=== PATIENT | female | born 1995 | race African-American/Black ===

== ENCOUNTER 2018-03-25 18:10 | Emergency (ER) | payer SELFPAY ==
[~2018-03-25] VITALS: Ht 152.4 cm; Wt 59.0 kg
[~2018-03-25 18:10] MED LIST: PREN-96 PO
[2018-03-25 18:49] VITALS: BP 113/55
== END 2018-03-26 00:13 | disposition home or self-care (01) ==
LOC: ER 18:10
DX: O46.91 Antepartum hemorrhage, unspecified, first trimester (principal); Z3A.00 Weeks of gestation of pregnancy not specified; Z53.21 Procedure and treatment not carried out due to patient leaving prior to being seen by health care provider

== ENCOUNTER 2019-04-07 21:35 | Observation (INO) | payer SELFPAY ==
[~2019-04-07] VITALS: Ht 152.4 cm; Wt 76.2 kg
[2019-04-07 22:14] LABS: Urine Bacteria FEW /hpf (None Seen); Urine Blood TRACE /uL (Negative); Urine Mucus FEW (None Seen); Urine Specific Gravity 1.027 (1.001-1.035); Urine WBC 12 /hpf (0 - 5)
[2019-04-07 22:29] LABS: Alcohol, Urine < 3.0 mg/dL (0-5); Amphetamine Screen, Urine NEGATIVE (NEGATIVE); Barbiturate Scree,Urine NEGATIVE (NEGATIVE); Benzodiazephine Screen, Urine NEGATIVE (NEGATIVE); Cannabinoid Screen, Urine NEGATIVE (NEGATIVE); Cocaine Screen, Urine NEGATIVE (NEGATIVE); Opiate Scree,Urine NEGATIVE (NEGATIVE); Phencyclidine Screen, Urine NEGATIVE (NEGATIVE)
== END 2019-04-07 22:37 | disposition home or self-care (01) | DRG 833 ==
LOC: LDRP 21:35
PROVIDERS: ADMIT Obstetrics & Gynecology; ATTEND Obstetrics & Gynecology
DX: O62.9 Abnormality of forces of labor, unspecified (principal); O26.893 Other specified pregnancy related conditions, third trimester; N89.8 Other specified noninflammatory disorders of vagina; Z3A.37 37 weeks gestation of pregnancy
CPT/HCPCS: 80307; 81001; G0378; 59025; 81002

== ENCOUNTER 2023-05-08 20:01 | Emergency (ER) | payer MEDICAID ==
[~2023-05-08] VITALS: Ht 152.4 cm; Wt 83.0 kg
[2023-05-08 21:08] LABS: Urine Bacteria FEW /hpf (None Seen); Urine Blood 2+ /uL (Negative); Urine Mucus FEW (None Seen); Urine Specific Gravity 1.025 (1.001-1.035); Urine WBC 4 /hpf (0 - 5)
[2023-05-08 21:09] LABS: Mean Corpuscular Hemoglobin 30.2 pg (28.0-32.0); Mean Corpuscular Hgb Conc. 33.9 g/dL (32.0-36.0); Mean Corpuscular Volume 89.2 fL (80.0-100.0)
[2023-05-08 21:14] LABS: Basophils # (auto) 0 10 ^3/uL (0-0.2); Basophils % (auto) 0.4 % (0.0-2.0); Eosinophils # (auto) 0.2 10 ^3/uL (0-0.8); Hematocrit 37.7 % (36.0-46.0); Hemoglobin 12.8 g/dL (12.2-16.2); Lymphocytes # (auto) 2.6 10 ^3/uL (0.4-5.4); Lymphocytes % (auto) 34.5 % (10.0-50.0); Monocytes # (auto) 0.6 10 ^3/uL (0-1.3); Neutrophils # (auto) 4.2 10 ^3/uL (1.6-8.6); Neutrophils % (auto) 55.1 % (37.0-80.0); Nucleated Red Blood Cells % 0.3 %; Red Blood Cells 4.23 10^6/uL (4.0-5.20); Red Cell Distribution Width 14.6 % (11.8-14.3); White Blood Cell 7.6 10^3/uL (4.4-10.8)
[2023-05-08 21:27] LABS: Albumin 3.9 g/dL (3.4-5.0); Calcium 9.2 mg/dL (8.5-10.1); Magnesium 2.4 mg/dL (1.6-2.6); Potassium 4.1 mmol/L (3.5-5.1)
[2023-05-08 21:30] LABS: BUN/Creatinine Ratio 14.9 (10.0-20.0); Bilirubin, Total 0.3 mg/dL (0.2-1.0); Total Protein 7.1 g/dL (6.4-8.2)
[2023-05-09 00:19] VITALS: BP 85/55; PULSE 63; RESP 15; TEMP 97.6; O2SAT 99
[2023-05-09] MEDS ORDERED: CYCL-611 PO (00:19)
[2023-05-09] MEDS ORDERED: FAMO20TA10 PO (00:19)
== END 2023-05-09 01:05 | disposition home or self-care (01) ==
LOC: ER 20:01
DX: R07.89 Other chest pain (principal); K21.9 Gastro-esophageal reflux disease without esophagitis; M62.830 Muscle spasm of back; R00.2 Palpitations; Z32.02 Encounter for pregnancy test, result negative; Z79.899 Other long term (current) drug therapy
CPT/HCPCS: 36415; 71045; 80053; 81001; 81025; 83735; 83880; 84443; 84484; 85025; 93005

== ENCOUNTER 2024-01-09 18:03 | Observation (INO) | payer MEDICAID ==
[~2024-01-09] VITALS: Ht 154.9 cm; Wt 80.7 kg
[~2024-01-09 18:03] MED LIST changes: +CYCL-611 PO; +FAMO20TA10 PO
[2024-01-09 19:25] LABS: Fern Testing Negative
[2024-01-09 20:08] LABS: Urine Amorphous Crystal FEW /hpf (None Seen); Urine Bacteria FEW /hpf (None Seen); Urine Blood Negative /uL (Negative); Urine Clarity HAZY (Clear); Urine Color Yellow (Yellow); Urine Mucus FEW (None Seen); Urine Protein, UAD 1+ (Negative); Urine Specific Gravity 1.022 (1.001-1.035); Urine WBC 4 /hpf (0 - 5)
[2024-01-09] MEDS ORDERED: NITR-52 PO (20:09)
== END 2024-01-09 20:21 | disposition home or self-care (01) ==
LOC: LDRP 18:03
PROVIDERS: ADMIT Obstetrics & Gynecology; ATTEND Obstetrics & Gynecology
DX: O23.43 Unspecified infection of urinary tract in pregnancy, third trimester (principal); O41.1030 Infection of amniotic sac and membranes, unspecified, third trimester, not applicable or unspecified; Z91.040 Latex allergy status; Z3A.29 29 weeks gestation of pregnancy
CPT/HCPCS: 59025; 76815; 81001; 81002; 87086; 94760; G0378; Q0114

== ENCOUNTER 2024-03-12 15:42 | Observation (INO) | payer MEDICAID ==
[~2024-03-12 15:42] MED LIST changes: -CYCL-611 PO; -FAMO20TA10 PO; +NITR-52 PO
[2024-03-12 17:30] LABS: Vaginal Bacteria Many; Vaginal Clue Cells Moderate; Vaginal Epithelial Cells Moderate; Vaginal Trichomonas Not Present
[2024-03-12 17:31] LABS: Fern Testing Negative
[2024-03-12] MEDS ORDERED: FERRCAP9 PO (17:58)
[2024-03-12] MEDS ORDERED: CEPH250C PO (17:58)
[2024-03-12] MEDS ORDERED: METR-344 PO (17:58)
== END 2024-03-12 18:00 | disposition home or self-care (01) ==
LOC: LDRP 15:42 → UNDOADMOB 15:42 → LDRP 16:17 → UNDODISOB 18:00
PROVIDERS: ADMIT Obstetrics & Gynecology; ATTEND Obstetrics & Gynecology
DX: O23.43 Unspecified infection of urinary tract in pregnancy, third trimester (principal); O99.613 Diseases of the digestive system complicating pregnancy, third trimester; K21.9 Gastro-esophageal reflux disease without esophagitis; O99.013 Anemia complicating pregnancy, third trimester; D64.9 Anemia, unspecified; O48.0 Post-term pregnancy; O42.92 Full-term premature rupture of membranes, unspecified as to length of time between rupture and onset of labor; Z3A.37 37 weeks gestation of pregnancy; Z91.040 Latex allergy status
CPT/HCPCS: 59025; 81002; 87210; 94760; G0378; Q0114

== ENCOUNTER 2024-03-22 15:56 | Observation (INO) | payer MEDICAID ==
[~2024-03-22 15:56] MED LIST changes: +CEPH250C PO; +FERRCAP9 PO; +METR-344 PO; -NITR-52 PO
[2024-03-22 16:53] LABS: Fern Testing Negative
== END 2024-03-22 17:24 | disposition home or self-care (01) ==
LOC: UNDOADMOB 15:56 → LDRP 15:56 → UNDODISOB 17:24
PROVIDERS: ADMIT Obstetrics & Gynecology; ATTEND Obstetrics & Gynecology
DX: O47.1 False labor at or after 37 completed weeks of gestation (principal); Z3A.39 39 weeks gestation of pregnancy; Z91.040 Latex allergy status
CPT/HCPCS: 59025; 81002; 84112; 94760; G0378; Q0114

== ENCOUNTER 2024-03-25 09:10 | Inpatient (IN) | payer MEDICAID ==
[~2024-03-25] VITALS: Ht 154.9 cm; Wt 74.8 kg
[2024-03-25] MEDS ORDERED: BUTORPHANOL TARTRATE 2 MG/1 ML VIAL IV PRN ×2 (10:00)
[2024-03-25] MEDS ORDERED: PHISODERM TOP SOLN 240ML BTL TOP PRN (10:00)
[2024-03-25] MEDS ORDERED: LACT. RINGERS/OXYTOCIN 20UNITS 1,000 ML IV SCH (10:00)
[2024-03-25] MEDS ORDERED: DERMOPLAST 60ML BOTTLE TOP PRN (10:00)
[2024-03-25] MEDS ORDERED: WITCH HAZEL-GLYCERIN PAD TOP PRN (10:00)
[2024-03-25] MEDS ORDERED: LIDOCAINE 2%HCL (LOCAL ANESTH.) INJ 20ML MDV IJ PRN (10:00)
[2024-03-25 10:15] LABS: Fern Testing Positive
[2024-03-25 10:27] LABS: Basophils # (auto) 0 10 ^3/uL (0-0.2); Basophils % (auto) 0.3 % (0.0-2.0); Eosinophils # (auto) 0 10 ^3/uL (0-0.8); Eosinophils % (auto) 0.1 % (0.0-7.0); Hematocrit 33.4 % (36.0-46.0); Hemoglobin 10.8 g/dL (12.2-16.2); Lymphocytes # (auto) 1.8 10 ^3/uL (0.4-5.4); Lymphocytes % (auto) 13.7 % (10.0-50.0); Mean Corpuscular Hgb Conc. 32.4 g/dL (32.0-36.0); Mean Corpuscular Volume 83.1 fL (80.0-100.0); Monocytes % (auto) 7.3 % (0.0-12.0); Neutrophils # (auto) 10.5 10 ^3/uL (1.6-8.6); Neutrophils % (auto) 78.6 % (37.0-80.0); Red Blood Cells 4.02 10^6/uL (4.0-5.20); Red Cell Distribution Width 15.5 % (11.8-14.3); White Blood Cell 13.4 10^3/uL (4.4-10.8)
[2024-03-25 10:43] LABS: Alanine Aminotransferase 79 U/L (7-40); Alkaline Phosphatase 100 U/L (46-116); Anion Gap 7 (5-15); Aspartate Aminotransferase 48 U/L (13-40); BUN/Creatinine Ratio 14.8 (10.0-20.0); Blood Urea Nitrogen 8 mg/dL (9-23); Calcium 9.9 mg/dL (8.5-10.1); Carbon Dioxide 24 mmol/L (20-30); Chloride 104 mmol/L (98-107); Glucose 87 mg/dL (74-106); Potassium 3.8 mmol/L (3.5-5.1); Sodium 135 mmol/L (136-145)
[2024-03-25 10:44] LABS: Bilirubin, Total 0.5 mg/dL (0.2-1.0); Total Protein 6.6 g/dL (5.7-8.2)
[2024-03-25 10:45] LABS: INR 0.97 (0.9-1.15); Partial Thromboplastin Time 26.3 SEC (24.5-34.5); Prothrombin Time 10.3 sec (9.3-11.8)
[2024-03-25] MEDS: miSOPROStol 50 MCG per PRE-CUT 1/2 TAB PO PRN (11:11)
[2024-03-25] MEDS: LACTATED RINGER'S 1,000 ML IV SCH (11:16)
[2024-03-25 12:13] LABS: Amphetamine Screen, Urine Neg (NEGATIVE); Barbiturate Scree,Urine Neg (NEGATIVE); Benzodiazephine Screen, Urine Neg (NEGATIVE); Cocaine Screen, Urine Neg (NEGATIVE); Creatinine, Urine 179.66 mg/dL (30.0-125.0); Opiate Scree,Urine Neg (NEGATIVE); Phencyclidine Screen, Urine Neg (NEGATIVE); Urine Protein/Creatinine Ratio 0.17
[2024-03-25 12:14] LABS: Cannabinoid Screen, Urine Neg (NEGATIVE)
[2024-03-25 12:27] LABS: Urine Bacteria FEW /hpf (None Seen); Urine Blood Negative /uL (Negative); Urine Clarity Clear (Clear); Urine Color Yellow (Yellow); Urine Mucus FEW (None Seen); Urine Protein, UAD TRACE (Negative); Urine Specific Gravity 1.023 (1.001-1.035); Urine Urobilinogen Normal (Negative); Urine WBC 4 /hpf (0 - 5)
[2024-03-25] MEDS: LACT. RINGERS/OXYTOCIN 20UNITS 500 ML IV ONE ×2 (15:00)
[2024-03-25] MEDS ORDERED: ONDANSETRON ODT 4 MG TAB PO PRN (16:30)
[2024-03-25] MEDS: IBUPROFEN 600 MG TAB PO PRN (17:00)
[2024-03-25 19:30] VITALS: BP 102/59; PULSE 85; RESP 16; TEMP 98.2; O2SAT 97
[2024-03-25] MEDS: ACETAMINOPHEN 325 MG TAB PO PRN (19:47)
[2024-03-25 23:30] VITALS: BP 98/57; PULSE 82; RESP 16; TEMP 98; O2SAT 97
[2024-03-26 03:00] VITALS: BP 99/62; PULSE 82; RESP 14; TEMP 97.9; O2SAT 97
[2024-03-26] MEDS ORDERED: IBU600T PO (05:57)
[2024-03-26 07:07] LABS: RPR Non Reactive (Non Reactive)
[2024-03-26 07:22] LABS: Basophils # (auto) 0 10 ^3/uL (0-0.2); Basophils % (auto) 0.1 % (0.0-2.0); Eosinophils # (auto) 0 10 ^3/uL (0-0.8); Hemoglobin 10.6 g/dL (12.2-16.2); Monocytes # (auto) 1.3 10 ^3/uL (0-1.3); Red Blood Cells 3.94 10^6/uL (4.0-5.20); White Blood Cell 15.1 10^3/uL (4.4-10.8)
[2024-03-26 07:23] LABS: Eosinophils % (auto) 0.2 % (0.0-7.0); Hematocrit 32.9 % (36.0-46.0); Lymphocytes % (auto) 13.2 % (10.0-50.0); Mean Corpuscular Hemoglobin 26.8 pg (28.0-32.0); Mean Corpuscular Hgb Conc. 32.2 g/dL (32.0-36.0); Mean Corpuscular Volume 83.4 fL (80.0-100.0); Monocytes % (auto) 8.4 % (0.0-12.0); Neutrophils # (auto) 11.8 10 ^3/uL (1.6-8.6); Neutrophils % (auto) 78.1 % (37.0-80.0); Nucleated Red Blood Cells % 0.1 %; Red Cell Distribution Width 16.1 % (11.8-14.3)
[2024-03-26 07:30] VITALS: BP 111/64; PULSE 87; RESP 16; TEMP 98.7; O2SAT 97
[2024-03-26 11:30] VITALS: BP 95/50; PULSE 86; RESP 16; TEMP 98.1; O2SAT 97
[2024-03-26 14:30] VITALS: BP 100/68; PULSE 78; RESP 18; TEMP 97.9; O2SAT 98
[2024-03-26 15:58] VITALS: BP 98/60; PULSE 82; RESP 16; TEMP 98.5; O2SAT 99
[2024-03-27 18:06] LABS: Treponema pallidum Ab (FTA-Ab) Non Reactive (Non Reactive)
== END 2024-03-26 15:45 | disposition home or self-care (01) | DRG 560 ==
LOC: LDRP 09:10 → OBSVTOIN 09:35 → LDRP 16:46
PROVIDERS: ADMIT Obstetrics & Gynecology; ATTEND Obstetrics & Gynecology
PROC: 10E0XZZ Delivery of Products of Conception, External Approach (ICD-10-PCS; principal; 2024-03-25)
PROC: 3E0DXGC Introduction of Other Therapeutic Substance into Mouth and Pharynx, External Approach (ICD-10-PCS; 2024-03-25)
DX: O42.92 Full-term premature rupture of membranes, unspecified as to length of time between rupture and onset of labor (principal); Z37.0 Single live birth; O90.81 Anemia of the puerperium; Z3A.39 39 weeks gestation of pregnancy; Z91.040 Latex allergy status
CPT/HCPCS: 36415; 59409; 76818; 80053; 80307; 81001; 82570; 84112; 84156; 84550; 85025; 85610; 85730; 86592; 86803; 86850; 86900; 86901; 94760; 96360; 96361; 96365; 96366; G0378; J2590

== ENCOUNTER 2024-08-29 08:04 | Inpatient (IN) | payer MEDICAID ==
[~2024-08-29] VITALS: Ht 152.4 cm; Wt 86.4 kg
[~2024-08-29 08:04] MED LIST changes: -CEPH250C PO; +IBU600T PO; -METR-344 PO
--- NOTE | 2024-08-29 08:26 | ED.PDOC ---
General HPI Comments 28y F who presents to the ED for chief complaint of flank pain. Pt states she has been having L sided flank pain radiating to the R side of her abdomen for the past "1 year." Pt states the pain is intermittent, achy in nature, with no associated exacerbating or relieving factors. Pt has associated body aches and chills but otherwise denies nausea, vomiting, fever, cough, headache, dizziness, dysuria, chest pain or shortness of breath. Pt states she has taken Tylenol for the pain but states it has not helped. Pt denies any past medical history or the use of medications on daily basis. Pt otherwise denies any other symptoms at this time. Chief Complaint: Flank Pain Time Seen by MD: 08:23 Primary Care Provider: RICARDO Mcclelland notes: Medications, Allergies Allergies: Coded Allergies: Latex (Verified Allergy, Severe, hives, 01/19/24) Home Meds Active Scripts Pantoprazole Sodium Sesquihydr (Protonix) 40 Mg Tab, 40 MG PO DAILY for 5 Days, #5 TAB Prov:RACHEL AN MD 08/29/24 Ibuprofen Micronized (MOTRIN TABLET) 600 Mg Tb, 600 MG PO Q6HP PRN for 10 Days, #40 TAB Prov:RICKIE LUX DO 03/26/24 Ferrous Fumarate-Iron Polysacc (Integra F) Cap, 1 CAP PO DAILY, #30 CAP 2 Refills Prov:ROSA GIBSON CNM 03/12/24 Reported Medications Vit W/ Ferrous Fumara ( One Daily) Daily Tab, 1 TAB PO DAILY, #90 TAB 3 Refills 06/18/16 Information Source: Patient Mode of Arrival: Ambulatory Brought in by: self Past Medical History PAST MEDICAL HISTORY: Denies Surgical History: Denies all surgeries SOIL ANALYST History: No Pertinent SOIL ANALYST History Family History Family History: Reviewed,noncontributory to illness Social History Smoker: Non-Smoker Alcohol: Rarely Drugs: Denies Drug Use Lives In: Home Constitutional: reports: chills, others (body aches ); denies: diaphoresis, fatigue, fever, malaise, sweats, weakness EENTM: denies: blurred vision, double vision, ear bleeding, ear discharge, ear drainage, ear pain, ear ringing, eye pain, eye redness, hearing loss, mouth pain, mouth swelling, nasal discharge, nose bleeding, nose congestion, nose pain, photophobia, tearing, throat pain, throat swelling, voice changes, others Respiratory: denies: cough, hemoptysis, orthopnea, SOB at rest, shortness of breath, SOB with excertion, stridor, wheezing, others Cardiovascular: denies: chest pain, dizzy spells, diaphoresis, Dyspnea on exertion, edema, irregular heart beat, left arm pain, lightheadedness, palpitations, PND, syncope, others Gastrointestinal: reports: abdominal pain; denies: abdomen distended, blood streaked bowels, constipated, diarrhea, dysphagia, difficulty swallowing, he matemesis, melena, nausea, poor appetite, poor fluid intake, rectal bleeding, rectal pain, vomiting, others Genitourinary: reports: flank pain; denies: abnormal vagina bleeding, burning, dyspareunia, dysuria, frequency, hematuria, incontinence, pain, , vagina discharge, urgency, others Neurological: denies: dizziness, fainting, headache, left sided numbness, left sided weakness, numbness, paresthesia, pre-existing deficit, right sided numbness, right sided weakness, seizure, speech problems, tingling, tremors, weakness, others Musculoskeletal: denies: back pain, gout, joint pain, joint swelling, muscle pain, muscle stiffness, neck pain, others Integumetry: denies: bruises, change in color, change in hair/nails, dryness, laceration, lesions, lumps, rash, wounds, others Allergic/Immunocompromised: denies: Difficulty Healing, Frequent Infections, Hives, Itching, others Hematologic/Lymphatic: denies: anemia, blood clots, easy bleeding, easy bruising, swollen glands, others Endocrine: denies: excessive hunger, excessive sweating, excessive thirst, excessive urination, flushing, intolerance to cold, intolerance to heat, unexplained weight gain, unexplained weight loss, others Psychiatric: denies: anxiety, bipolar disorder, depression, hopeless, panic disorder, schizophrenia, sleepless, suicidal, others All Other Systems: Reviewed and Negative Physical Exam General Appearance: Moderate Distress HEENT: Normal ENT Inspection, Pharynx Normal, TMs Normal Neck: Full Range of Motion, Non-Tender, Normal, Normal Inspection Respiratory: Chest Non-Tender, Lungs Clear, No Accessory Muscle Use, No Respiratory Distress, Normal Breath Sounds Cardiovascular: No Edema, No JVD, No Murmur, No Gallop, Normal Peripheral Pulses, Regular Rate/Rhythm Breast Exam: Deferred Gastrointestinal: No Organomegaly, Non Tender, No Pulsatile Mass, Normal Bowel Sounds, Soft Genitalia: Deferred Pelvic: Deferred Rectal: Deferred Extremities: No calf tenderness, Normal capillary refill, Normal inspection, Normal range of motion, Non-tender, No pedal edema Musculoskeletal : Apperance: Normal Neurologic: Alert, computing consultant II-XII nml as Tested, No Motor Deficits, Normal Affect, Normal Mood, No Sensory Deficits Cerebellar Function: Normal Reflexes: Normal Skin: Dry, Normal Color, Warm Peripheral Pulses: 3+ Radial (R), 3+ Radial (L) Lymphatic: No Adenopathy Was a procedure done? Was a procedure done?: No Differential Diagnosis Kidney stone (Female): Musculoskeletal pain, Pancreatitis, Strain, Other (ova francesca cyst, anemia, GERD, ) Urinary Problem (Female): PID, Pyelonephritis, Urolithiasis, UTI X-Ray, Labs, Meds, VS Vital Signs Date Time Temp Pulse Resp B/P (MAP) Pulse Ox O2 Delivery O2 Flow Rate FiO2 08/29/24 09:20 69 14 99 Room Air* 0 21 08/29/24 09:13 98.3 69 14 123/72 (89) 99 98.3 08/29/24 08:22 98.3 75 16 126/87 (100) 97 Lab Test 08/29/24 10:40 08/29/24 08:00 Range/Units White Blood Count 8.4 4.4-10.8 10^3/uL Red Blood Count 4.36 4.0-5.20 10^6/uL Hemoglobin 13.4 12.2-16.2 g/dL Hematocrit 39.8 36.0-46.0 % Mean Corpuscular Volume 91.2 80.0-100.0 fL Mean Corpuscular Hemoglobin 30.7 28.0-32.0 pg Mean Corpuscular Hemoglobin Concent 33.6 32.0-36.0 g/dL Red Cell Distribution Width 14.2 11.8-14.3 % Platelet Count 343 140-450 10^3/uL Mean Platelet Volume 8.3 6.9-10.8 fL Neutrophils (%) (Auto) 61.2 37.0-80.0 % Lymphocytes (%) (Auto) 25.2 10.0-50.0 % Monocytes (%) (Auto) 11.4 0.0-12.0 % Eosinophils (%) (Auto) 1.9 0.0-7.0 % Basophils (%) (Auto) 0.3 0.0-2.0 % Neutrophils # (Auto) 5.2 1.6-8.6 10 ^3/uL Lymphocytes # (Auto) 2.1 0.4-5.4 10 ^3/uL Monocytes # (Auto) 1.0 0-1.3 10 ^3/uL Eosinophils # (Auto) 0.2 0-0.8 10 ^3/uL Basophils # (Auto) 0 0-0.2 10 ^3/uL Nucleated Red Blood Cells 0.0 % Sodium Level 140 136-145 mmol/L Potassium Level 3.7 3.5-5.1 mmol/L Chloride Level 108 H 98-107 mmol/L Carbon Dioxide Level 27 20-31 mmol/L Anion Gap 5 5-15 Blood Urea Nitrogen 13 9-23 mg/dL Creatinine 0.72 0.550-1.02 mg/dL Glomerular Filtration Rate Calc 117 >90 mL/min BUN/Creatinine Ratio 18.1 10.0-20.0 Serum Glucose 85 74-106 mg/dL Calcium Level 10.0 8.7-10.4 mg/dL Lipase 31 12-53 U/L Urine Color Light-yellow Yellow Urine Clarity Clear Clear Urine pH 6.0 5.0-9.0 Urine Specific [place] 1.026 1.001-1.035 Urine Protein Negative Negative Urine Ketones Negative Negative Urine Blood Negative Negative /uL Urine Nitrite Negative Negative Urine Bilirubin Negative Negative Urine Urobilinogen 2 H Negative mg/dL Urine Leukocyte Esterase Negative Negative /uL Urine RBC 1 0 - 4 /hpf Urine WBC 4 0 - 5 /hpf Urine Squamous Epithelial Cells Few <5 /hpf Urine Bacteria Few H None Seen /hpf Urine Glucose Normal Normal mg/dL Urine Test Pending PROCEDURE(s): ABDL - ABDOMEN LIMITED IMPRESSION: 1. Contracted gallbladder filled with gallstones. Clinical correlation is recommended. HIDA scan may be performed to evaluate for further evaluation. 2. 0.5 cm echogenic focus in the midpole of the right kidney may represent a small nonobstructive calculus. HS:Y Patient alert. Complaining of right upper quadrant discomfort. Vitals stable. Answering questions. Has been having these symptoms for a year. Denies pain on urination. Abdomen is soft nontender. No sign of any gallbladder disease. Reviewed her previous history. Explained to the patient about the treatment plan. Was told to follow up with her primary care physician. Was told to come back if there is any problem. Try to discharge the patient. States that her pain is 10/10. Has no physician to follow up. For better patient care she will further workup. Time of 1ST Reevaluation: 09:00 Reevaluation 1ST: Unchanged Patient Education/Counseling: Diagnosis, Treatment Family Education/Counseling: No Family Present Departure 1 Departure Time of Disposition: 08:44 Impression: Primary Impression: GERD (gastroesophageal reflux disease) Qualified Codes: K21.9 - Gastro-esophageal reflux disease without esophagitis Additional Impressions: Acute abdominal pain Hepatic steatosis Disposition: ADMITTED INPATIENT Admit to: Med Surg Condition: Guarded e-Prescriptions Pantoprazole Sodium Sesquihydr (Protonix) 40 Mg Tab 40 MG PO DAILY for 5 Days, #5 TAB Prov: RACHEL AN MD 08/29/24 Critical Care Note Critical Care Time?: Yes (45 min-critical care time only) Stability Stability form required: No Heart Score Heart Score: Heart Score Response (Comments) Value History N/A 0 EKG N/A 0 Age N/A 0 Risk Factors N/A 0 Troponin N/A 0 Total 0 I personally scribed for RACHEL AN MD (RANDY) on 08/29/24 at 08:26. Electronically submitted by David Rivero ([email or web address]). I personally scribed for RACHEL AN MD (RANDY) on 08/29/24 at 12:21. Electronically submitted by David RILEYLánzanos). RACHEL AN MD Aug 29, 2024 08:26
[2024-08-29 09:17] LABS: Urine Bacteria FEW /hpf (None Seen); Urine Blood Negative /uL (Negative); Urine Clarity Clear (Clear); Urine Color Light-Yellow (Yellow); Urine Protein, UAD Negative (Negative); Urine Specific Gravity 1.026 (1.001-1.035); Urine Urobilinogen 2 mg/dL (Negative); Urine WBC 4 /hpf (0 - 5)
[2024-08-29 09:20] VITALS: PULSE 69; RESP 14; O2SAT 99
[2024-08-29] MEDS ORDERED: PANT40TA2 PO (10:01)
[2024-08-29 11:21] LABS: Basophils # (auto) 0 10 ^3/uL (0-0.2); Basophils % (auto) 0.3 % (0.0-2.0); Eosinophils # (auto) 0.2 10 ^3/uL (0-0.8); Eosinophils % (auto) 1.9 % (0.0-7.0); Hematocrit 39.8 % (36.0-46.0); Hemoglobin 13.4 g/dL (12.2-16.2); Lymphocytes # (auto) 2.1 10 ^3/uL (0.4-5.4); Lymphocytes % (auto) 25.2 % (10.0-50.0); Mean Corpuscular Hemoglobin 30.7 pg (28.0-32.0); Mean Corpuscular Hgb Conc. 33.6 g/dL (32.0-36.0); Mean Corpuscular Volume 91.2 fL (80.0-100.0); Monocytes % (auto) 11.4 % (0.0-12.0); Neutrophils # (auto) 5.2 10 ^3/uL (1.6-8.6); Neutrophils % (auto) 61.2 % (37.0-80.0); Platelet Count (auto) 343 10^3/uL (140-450); Red Blood Cells 4.36 10^6/uL (4.0-5.20); Red Cell Distribution Width 14.2 % (11.8-14.3); White Blood Cell 8.4 10^3/uL (4.4-10.8)
[2024-08-29 11:29] LABS: Chloride 108 mmol/L (98-107); Potassium 3.7 mmol/L (3.5-5.1); Sodium 140 mmol/L (136-145)
[2024-08-29 11:30] LABS: Anion Gap 5 (5-15); Carbon Dioxide 27 mmol/L (20-31)
[2024-08-29 11:35] LABS: Glucose 85 mg/dL (74-106)
--- NOTE | 2024-08-29 11:35 | DVH ---
ULTRASOUND ABDOMEN limited INDICATION: Pain. TECHNIQUE: Multiple real-time sonographic images of the abdomen were obtained. COMPARISON: US OBSTERICAL LIMITED on DOS: 01/09/24 FINDINGS: The visualized liver parenchyma appears homogenous . The liver measures 15 cm. No discrete hepat ic lesion or intrahepatic biliary ductal dilatation is identified. Gallbladder is contracted filled with gallstones with acoustic shadowing in the gallbladder fossa. Th e common biliary duct is not dilated. The right kidney measures 8.6 cm length. There is a 0.5 cm echogenic focus in the midpole of the rig ht kidney which may represent a small calculus. There is no hydronephrosis. The spleen measures cm and appears within normal limits. Visualized pancreas appears within normal limits. IMPRESSION: 1. Contracted gallbladder filled with gallstones. Clinical correlation is recommended. HIDA scan may be performed to evaluate for further evaluation. 2. 0.5 cm echogenic focus in the midpole of the right kidney may represent a small nonobstructive kishan culus. HS:Y
[2024-08-29 11:36] LABS: BUN/Creatinine Ratio 18.1 (10.0-20.0); Blood Urea Nitrogen 13 mg/dL (9-23); Lipase 31 U/L (12-53)
[2024-08-29] MEDS ORDERED: ONDANSETRON HCL 4 MG/2 ML VIAL IV PRN (13:00)
[2024-08-29] MEDS ORDERED: MORPHINE SULFATE INJ 2 MG/ml SYRG IV PRN ×2 (13:00)
[2024-08-29] MEDS ORDERED: NITROGLYCERIN 0.4 MG SL TAB SL PRN (13:00)
--- NOTE | 2024-08-29 14:27 | DVHHP2 ---
History of Present Illness Reason for Visit: Abdominal pain History of Present Illness 28-year-old female presented to the ED with chief complaint of abdominal right upper quad pain and flank pain, patient states she has been having the flank pain which radiates to the right side of her abdomen for the past year. Patient states the pain is intermittent, achy with no other associated exacerbating or relieving factors. Patient states current pain is 10/10, most recently she has body aches and chills but otherwise denies nausea, vomiting, fever, cough, headache, dizziness, dysuria, chest pain, or shortness of breath. Patient has tried taking Tylenol for the pain but it did not help. On abdominal ultrasound stones are seen in the gallbladder, gallbladder is contracted, with no CBD dilation, 5 mm kidney stone also seen. HIDA scan was ordered. Patient was admitted for further evaluation medical management. Past Medical History Denies X1 vaginal , March of this year Past Surgical History Denies Family History Reviewed noncontributory to the management of this case Smoke: No ALCOHOL: none Drugs: None Lives: with Family Review of Systems Constitutional: No: Fever, Chills, Sweats, Weakness, Malaise, Other Eyes: No: Pain, Vision change, Conjunctivae inflammation, Eyelid inflammation, Other, Redness ENT: No: Ear pain, Ear discharge, Nose pain, Nose discharge, Nose congestion, Mouth pain, Mouth swelling, Throat pain, Throat swelling, Other Respiratory: No: Cough, Dry, Shortness of breath, SOB with excertion, Wheezing, Hemoptysis, Pleuritic Pain, Sputum, Wheezing, Other Cardiovascular: No: Chest Pain, Palpitations, Orthopnea, Paroxysmal Noc. Dyspnea, Edema, Lt Headedness, Other Gastrointestinal: Abdominal Pain; No: Nausea, Vomiting, Diarrhea, Constipation, Melena, Hematochezia, Other Genitourinary: No Dysuria, No Frequency, No Incontinence, No Hematuria, No Retention, No Other Musculoskeletal: No: other, neck pain, shoulder pain, arm pain, back pain, hand pain, leg pain, foot pain Skin: No: Rash, Lesions, Jaundice, Bruising, Other Neurological: No: Weakness, Numbness, Incoordination, Change in speech, Confusion, Seizures, Other Allergies: Coded Allergies: Latex (Verified Allergy, Severe, hives, 01/19/24) Medications Current Medications Medications Dose Ordered Sig/Severiano Route Start Time Stop Time Status Last Admin Dose Admin Ondansetron HCl 4 mg Q4HP PRN IV 08/29/24 13:00 Morphine Sulfate 1 mg Q4HPRN PRN IV 08/29/24 13:00 Nitroglycerin 0.4 mg Q5MINP PRN SL 08/29/24 13:00 Morphine Sulfate 2 mg Q30M PRN IV 08/29/24 13:00 Exam Vital Signs Vital Signs Date Time Temp Pulse Resp B/P (MAP) Pulse Ox O2 Delivery O2 Flow Rate FiO2 08/29/24 12:34 71 16 107/80 (89) 98 08/29/24 09:20 Room Air* 0 21 08/29/24 09:13 98.3 98.3 General Appearance: Alert, Oriented X3, Cooperative, mild distress HEENT: Atraumatic, PERRLA, EOMI, Mucous membr. moist/pink Respiratory: Clear to auscultation, Normal air movement Cardiovascular: Regular rate, Normal S1, Normal S2, No murmurs Abdominal: Normal bowel sounds, Soft, No hepatospenomegaly, No masses, Other (Right upper quad tenderness) Extremities: No clubbing, No cyanosis, No edema, Normal pulses, No tenderness/swelling Skin: No rashes, No breakdown, No significant lesion Neuro: Normal gait, Normal speech, Strength at 5/5 X4 ext, Normal tone, Sensation intact, Cranial nerves 3-12 NL, Reflexes 2+ Psych/Mental Status: Mental status NL, Mood NL Labs/Xrays Labs, imaging and ED notes reviewed Labs Test 08/29/24 10:40 08/29/24 08:00 Range/Units White Blood Count 8.4 4.4-10.8 10^3/uL Red Blood Count 4.36 4.0-5.20 10^6/uL Hemoglobin 13.4 12.2-16.2 g/dL Hematocrit 39.8 36.0-46.0 % Mean Corpuscular Volume 91.2 80.0-100.0 fL Mean Corpuscular Hemoglobin 30.7 28.0-32.0 pg Mean Corpuscular Hemoglobin Concent 33.6 32.0-36.0 g/dL Red Cell Distribution Width 14.2 11.8-14.3 % Platelet Count 343 140-450 10^3/uL Mean Platelet Volume 8.3 6.9-10.8 fL Neutrophils (%) (Auto) 61.2 37.0-80.0 % Lymphocytes (%) (Auto) 25.2 10.0-50.0 % Monocytes (%) (Auto) 11.4 0.0-12.0 % Eosinophils (%) (Auto) 1.9 0.0-7.0 % Basophils (%) (Auto) 0.3 0.0-2.0 % Neutrophils # (Auto) 5.2 1.6-8.6 10 ^3/uL Lymphocytes # (Auto) 2.1 0.4-5.4 10 ^3/uL Monocytes # (Auto) 1.0 0-1.3 10 ^3/uL Eosinophils # (Auto) 0.2 0-0.8 10 ^3/uL Basophils # (Auto) 0 0-0.2 10 ^3/uL Nucleated Red Blood Cells 0.0 % Sodium Level 140 136-145 mmol/L Potassium Level 3.7 3.5-5.1 mmol/L Chloride Level 108 H 98-107 mmol/L Carbon Dioxide Level 27 20-31 mmol/L Anion Gap 5 5-15 Blood Urea Nitrogen 13 9-23 mg/dL Creatinine 0.72 0.550-1.02 mg/dL Glomerular Filtration Rate Calc 117 >90 mL/min BUN/Creatinine Ratio 18.1 10.0-20.0 Serum Glucose 85 74-106 mg/dL Calcium Level 10.0 8.7-10.4 mg/dL Lipase 31 12-53 U/L Urine Color Light-yellow Yellow Urine Clarity Clear Clear Urine pH 6.0 5.0-9.0 Urine Specific [place] 1.026 1.001-1.035 Urine Protein Negative Negative Urine Ketones Negative Negative Urine Blood Negative Negative /uL Urine Nitrite Negative Negative Urine Bilirubin Negative Negative Urine Urobilinogen 2 H Negative mg/dL Urine Leukocyte Esterase Negative Negative /uL Urine RBC 1 0 - 4 /hpf Urine WBC 4 0 - 5 /hpf Urine Squamous Epithelial Cells Few <5 /hpf Urine Bacteria Few H None Seen /hpf Urine Glucose Normal Normal mg/dL Urine Test Negative Negative Assessment/Plan Assessment/Plan Acute Cholelithiasis Admit to medical/surgical Ordered HIDA scan Surgical consult to eval Pain medications p.r.n. Zofran p.r.n. nausea Nephrolithiasis Encourage hydration No urology consult needed at this time, patient will need information on discharge to consult Urology outpatient Social service consult to help the patient find primary care provider FEN/PPX No GI or VTE prophylaxis need indicated Cardiac diet Encourage p.o. hydration Plan discussed with: Patient My Orders Orders - RYLAN BRODERICK Procedure Category Date Status Time Abdomen Limited US 08/29/24 Resulted 10:46 Nm Hida Scan NM 08/29/24 Logged 12:56 Admit ADMIT 08/29/24 Transmitted 12:57 Code Status CODE 08/29/24 Transmitted 12:57 Vital Signs [facility] 08/29/24 In Process 12:57 Review Orders With [facility] 08/29/24 In Process Adm. 12:57 Up Ad Marlys [facility] 08/29/24 In Process 12:57 Notify Of Changes [facility] 08/29/24 In Process From Base 12:57 Advance Directive [facility] 08/29/24 In Process 12:57 Basic Metabolic Panel LAB 08/30/24 Verified 04:00 Complete Blood Count LAB 08/30/24 Verified 04:00 Patient Condition ORDERS 08/29/24 Transmitted 12:57 Allergies [facility] 08/29/24 In Process 12:57 Ondansetron Hcl PHA 08/29/24 In Process (Zofran) 13:00 Morphine Sulfate PHA 08/29/24 In Process Injection 13:00 Nitroglycerin PHA 08/29/24 In Process Sublingual (Ntrostat 13:00 Morphine Sulfate PHA 08/29/24 In Process Injection 13:00 Stat Ekg For Chest [facility] 08/29/24 In Process Pain 12:57 Notify Of Changes [facility] 08/29/24 In Process From Base 12:57 National Sales Manager For [facility] 08/29/24 In Process 24 Hours 12:57 Emergency Dysrhythmia [facility] 08/29/24 In Process Protocol 12:57 Rhythm Strips Once [facility] 08/29/24 In Process Every Shift 12:57 Oxygen By Nasal RT 08/29/24 Transmitted Cannula 12:57 Date of Service: Aug 29, 2024 Billing Provider: RYLAN BRODERICK Common Visit Codes: [id number] INP/OBS CARE (HIGH) RYLAN BRODERICK Aug 29, 2024 14:27
[2024-08-29 18:33] VITALS: BP 125/75; PULSE 90; RESP 17; TEMP 97.9; O2SAT 98
[2024-08-29 18:41] VITALS: BP 125/75; PULSE 90; RESP 16; TEMP 97.8; O2SAT 98
[2024-08-29 20:14] VITALS: PULSE 80; RESP 17; O2SAT 96
[2024-08-29 21:00] VITALS: BP 121/72; PULSE 80; RESP 17; TEMP 97.9; O2SAT 96
[2024-08-29] MEDS: IBUPROFEN 600 MG TAB PO PRN (21:42)
[2024-08-30] VITALS (7 sets, daily range): BP systolic 95–110; BP diastolic 60–72; PULSE 62–76; RESP 14–20; TEMP 97.5–98.4; O2SAT 95–98
[2024-08-30 06:42] LABS: Anion Gap 7 (5-15); Calcium 9.9 mg/dL (8.7-10.4); Carbon Dioxide 26 mmol/L (20-31); Chloride 107 mmol/L (98-107); Potassium 3.9 mmol/L (3.5-5.1); Sodium 140 mmol/L (136-145)
[2024-08-30 06:48] LABS: Basophils # (auto) 0 10 ^3/uL (0-0.2); Basophils % (auto) 0.2 % (0.0-2.0); Blood Urea Nitrogen 18 mg/dL (9-23); Eosinophils # (auto) 0.2 10 ^3/uL (0-0.8); Eosinophils % (auto) 1.9 % (0.0-7.0); Glucose 93 mg/dL (74-106); Hematocrit 38.1 % (36.0-46.0); Hemoglobin 12.7 g/dL (12.2-16.2); Lymphocytes # (auto) 2.8 10 ^3/uL (0.4-5.4); Lymphocytes % (auto) 29.9 % (10.0-50.0); Mean Corpuscular Hemoglobin 30.3 pg (28.0-32.0); Mean Corpuscular Hgb Conc. 33.3 g/dL (32.0-36.0); Monocytes # (auto) 0.9 10 ^3/uL (0-1.3); Monocytes % (auto) 9.5 % (0.0-12.0); Neutrophils # (auto) 5.4 10 ^3/uL (1.6-8.6); Neutrophils % (auto) 58.5 % (37.0-80.0); Nucleated Red Blood Cells % 0.1 %; Platelet Count (auto) 342 10^3/uL (140-450); Red Blood Cells 4.18 10^6/uL (4.0-5.20); Red Cell Distribution Width 14.6 % (11.8-14.3); White Blood Cell 9.3 10^3/uL (4.4-10.8)
[2024-08-30 07:25] LABS: Albumin 4.5 g/dL (3.2-4.8); Alkaline Phosphatase 110 U/L (46-116); Aspartate Aminotransferase 10 U/L (13-40); Bilirubin, Direct 0.2 mg/dL (<0.3); Bilirubin, Total 0.6 mg/dL (0.2-1.0); Total Protein 7.3 g/dL (5.7-8.2)
[2024-08-30 07:26] LABS: Alanine Aminotransferase < 9 U/L (7-40)
[2024-08-30 07:30] LABS: INR 1.04 (0.9-1.15); Partial Thromboplastin Time 27.4 SEC (24.5-34.5)
--- NOTE | 2024-08-30 08:45 | DVHPN2 ---
Subjective Complaining of abdominal pain Reviewed: Care Plan, H&P, Labs, Medications, Previous Orders, Radiology, Other (Consultation) Changes from previous H/P or p: No Changes Objective Vitals Vital Signs Date Time Temp Pulse Resp B/P (MAP) Pulse Ox O2 Delivery O2 Flow Rate FiO2 08/30/24 08:32 98.3 76 16 108/68 (81) 95 98.3 08/29/24 20:14 Room Air* 0 21 Intake/Output Intake and Output 08/30/24 07:00 Intake Total 0 ml Balance 0 ml Intake Oral 0 ml General Appearance: Alert, Oriented X3, Cooperative, No acute distress HEENT: Atraumatic Lungs: Clear to auscultation, Normal air movement Cardiovascular: Regular rate, Normal S1 Abdomen: Normal bowel sounds, Soft, Other (Right upper quadrant tenderness) Extremities: No edema Neuro: Normal speech, Cranial nerves 3-12 NL Psych/Mental Status: Mental status NL, Mood NL Medications Current Medications Medications Dose Ordered Sig/Severiano Route Start Time Stop Time Status Last Admin Dose Admin Ondansetron HCl 4 mg Q4HP PRN IV 08/29/24 13:00 Morphine Sulfate 1 mg Q4HPRN PRN IV 08/29/24 13:00 Nitroglycerin 0.4 mg Q5MINP PRN SL 08/29/24 13:00 Morphine Sulfate 2 mg Q30M PRN IV 08/29/24 13:00 Ibuprofen 600 mg Q6HP PRN PO 08/29/24 21:15 08/30/24 03:52 600 MG Laboratory Results Laboratory Tests 08/30/24 06:15 Chemistry Test 08/29/24 10:40 08/30/24 06:15 Calcium Level 10.0 mg/dL (8.7-10.4) 9.9 mg/dL (8.7-10.4) Albumin 4.5 g/dL (3.2-4.8) Total Protein 7.3 g/dL (5.7-8.2) Coagulation Test 08/30/24 06:15 Prothrombin Time 11.0 sec (9.3-11.8) Prothrombin Time INR 1.04 (0.9-1.15) Activated Partial Thromboplast Time 27.4 SEC (24.5-34.5) Lipid panel Test 08/29/24 10:40 Lipase 31 U/L (12-53) LFT Test 08/30/24 06:15 Alanine Aminotransferase (ALT) < 9 U/L (7-40) Alkaline Phosphatase 110 U/L (46-116) Aspartate Amino Transferase (AST) 10 U/L (13-40) L Direct Bilirubin 0.2 mg/dL (<0.3) Total Bilirubin 0.6 mg/dL (0.2-1.0) Urinalysis Test 08/29/24 08:00 Urine Color Light-yellow (Yellow) Urine Clarity Clear (Clear) Urine pH 6.0 (5.0-9.0) Urine Specific [place] 1.026 (1.001-1.035) Urine Protein Negative (Negative) Urine Ketones Negative (Negative) Urine Blood Negative /uL (Negative) Urine Nitrite Negative (Negative) Urine Bilirubin Negative (Negative) Urine Urobilinogen 2 mg/dL (Negative) H Urine Leukocyte Esterase Negative /uL (Negative) Urine RBC 1 /hpf (0 - 4) Urine WBC 4 /hpf (0 - 5) Urine Squamous Epithelial Cells Few /hpf (<5) Urine Bacteria Few /hpf (None Seen) H Urine Glucose Normal mg/dL (Normal) Urine Test Negative (Negative) Labs and/or images reviewed: Labs reviewed by me, Image(s) reviewed by me Assessment/Plan Assessment/Plan A 28-year-old female patient with no known past medical history; who presented to the emergency department with abdominal pain. #Suspected acute cholecystitis #Abdominal pain due to suspected acute cholecystitis No symptoms/signs of sepsis Reviewed labs and imaging study; will not proceed with HIDA scan as the patient is breast-feeding; no need for further imaging studies as the patient will have surgery tomorrow Surgery onboard; laparoscopic cholecystectomy planned for tomorrow Clear liquid diet for now; NPO after midnight Continue pain management as needed #Kidney lesions; most likely nonobstructive stones Seen on gallbladder ultrasound Asymptomatic at this time To be evaluated as outpatient #Obesity Counseled the patient on the importance of adopting healthy lifestyle with diet and exercise in order to lose weight Goals of care discussed for 20 minutes; full code This medical document was created using an electronic medical record system with computerized dictation system. Although this document has been carefully reviewed, there might still be some phonetic and typographical errors. These areas are purely typographical due to imperfections of the software programs, and do not reflect any compromise in the patient's medical care. Plan discussed with: Patient, Other (Mother; nurse) Date of Service: Aug 30, 2024 Billing Provider: OMAR CASTILLO MD Common Visit Codes: [id number] INP/OBS CARE(HIGH) Secondary Visit Codes: [id number] CARE PLAN 30 MINUTES (20 minutes) OMAR CASTILLO MD Aug 30, 2024 08:45
[2024-08-30] MEDS: D5W/SOD CHL 0.45%/KCL 20MEQ 1,000 ML IV SCH (10:49)
--- NOTE | 2024-08-30 18:36 | DVHINCON2 ---
DATE OF CONSULTATION: 08/30/2024 SURGICAL CONSULTATION HISTORY OF PRESENT ILLNESS: The patient is being evaluated for possible cholecystectomy. She is a 28-year-old female who is being evaluated in her hospital bed. She is in no acute distress. The patient has been having abdominal and flank pain on and off for the last year. Pain is usually intermittent and exacerbated by eating. The patient has had some abdominal pain, aches and chills, but no nausea, vomiting, fever or other symptoms. The patient is currently her . The baby was born by vaginal delivery and is about 6 months old. The patient has had no previous medical conditions. PAST SURGICAL HISTORY: She has had no previous surgical procedures on her chest or abdomen. SOCIAL HISTORY: The patient is a nondrinker, nonsmoker, uses no illicit drugs. MEDICAL HISTORY: SHE IS ALLERGIC TO LATEX. REVIEW OF SYSTEMS: Negative as to information pertinent to the current illness. PHYSICAL EXAMINATION: GENERAL: Reveals a well-developed, well-nourished female, in no acute distress. HEENT: Pupils are equal, round, reactive equally. Sclerae nonicteric. External ocular motion is intact. Uvula midline. Trachea midline. Carotids are full without bruits. Jugular veins are collapsed. HEART: Regular rate and rhythm without murmur or gallop. ABDOMEN: Minimally tender in the right upper quadrant. There is no rebound tenderness, no guarding. No palpable masses or organomegalies. The patient has no CVA tenderness. EXTREMITIES: No peripheral vascular insufficiency. No venous stasis. LABORATORY DATA: On the patient's laboratory evaluation, she has a normal white cell count with a normal differential and normal platelet count. The patient's INR is 1.04. PT is 11.0. Chemistry shows normal electrolytes. Her bilirubin is 0.6. Liver enzymes are normal. She has a negative urine test. On imaging, she had an ultrasound, which showed a contracted gallbladder filled with stones. HIDA scan was ordered by the primary physician and is pending at the time of this dictation. ASSESSMENT AND PLAN: Laparoscopic, possibly open cholecystectomy. Risks and potential complications were explained in detail. The patient's main concern was continuing . I explained to her that the medications she is getting intravenously or orally will possibly be passed onto the baby and she needs to use pain medication judiciously and will be careful with selecting antibiotics, which will not be dangerous to the baby, passed onto the baby. The patient also inquired about medical treatment and I explained it to her that stone dissolution would be an alternative, but it takes a long time to work and the gallbladder will continue manufacturing stones and that the best treatment for her is a cholecystectomy. I explained that this is not an emergency and if she wishes to, she can have this scheduled at her convenience. The patient is scheduled for laparoscopic, possibly open cholecystectomy tomorrow morning pending her final decision. MD SOFI Carey TID: [id number] RECEIPT: [id number]
[2024-08-31 05:00] VITALS: BP 105/57; PULSE 62; RESP 18; TEMP 98; O2SAT 95
[2024-08-31 05:05] LABS: Basophils # (auto) 0 10 ^3/uL (0-0.2); Basophils % (auto) 0.5 % (0.0-2.0); Eosinophils # (auto) 0.1 10 ^3/uL (0-0.8); Eosinophils % (auto) 2.2 % (0.0-7.0); Hematocrit 37.3 % (36.0-46.0); Hemoglobin 12.3 g/dL (12.2-16.2); Lymphocytes # (auto) 2.4 10 ^3/uL (0.4-5.4); Lymphocytes % (auto) 36.2 % (10.0-50.0); Mean Corpuscular Hemoglobin 30.6 pg (28.0-32.0); Mean Corpuscular Hgb Conc. 33.1 g/dL (32.0-36.0); Mean Corpuscular Volume 92.5 fL (80.0-100.0); Monocytes # (auto) 0.8 10 ^3/uL (0-1.3); Monocytes % (auto) 11.8 % (0.0-12.0); Neutrophils # (auto) 3.2 10 ^3/uL (1.6-8.6); Neutrophils % (auto) 49.3 % (37.0-80.0); Nucleated Red Blood Cells % 0.2 %; Platelet Count (auto) 301 10^3/uL (140-450); Red Blood Cells 4.03 10^6/uL (4.0-5.20); Red Cell Distribution Width 14.5 % (11.8-14.3); White Blood Cell 6.5 10^3/uL (4.4-10.8)
[2024-08-31 05:21] LABS: Alkaline Phosphatase 100 U/L (46-116); Anion Gap 4 (5-15); Aspartate Aminotransferase 10 U/L (13-40); BUN/Creatinine Ratio 10.5 (10.0-20.0); Calcium 9.5 mg/dL (8.7-10.4); Carbon Dioxide 26 mmol/L (20-31); Chloride 110 mmol/L (98-107); Glucose 93 mg/dL (74-106); Sodium 140 mmol/L (136-145)
[2024-08-31 05:22] LABS: Alanine Aminotransferase < 9 U/L (7-40); Albumin 4.2 g/dL (3.2-4.8); Blood Urea Nitrogen 8 mg/dL (9-23); Total Protein 6.6 g/dL (5.7-8.2)
[2024-08-31 08:52] VITALS: BP 109/64; PULSE 77; RESP 16; TEMP 98.5; O2SAT 98
[2024-08-31] MEDS: SUCCINYLCHOLINE CHLORIDE 20 MG/ML 10ML VIAL IV ONE (10:17)
[2024-08-31] MEDS ORDERED: ONDANSETRON HCL 4 MG/2 ML VIAL ONE (10:20)
[2024-08-31] MEDS ORDERED: MIDAZOLAM HCL 2MG/2ML 2ml VIAL (1mg/ml) ONE (10:20)
[2024-08-31] MEDS ORDERED: diphenhdrAMINE HCL 50 MG/1 ML VL ONE (10:20)
[2024-08-31] MEDS ORDERED: METOPROLOL TARTRATE 1MG/1ML-5ML VIAL IV ONE (10:20)
[2024-08-31] MEDS ORDERED: GLYCOPYRROLATE 0.2 MG/ML 1ML VIAL ONE (10:20)
[2024-08-31] MEDS ORDERED: fentaNYL CITRATE 100 MCG/2 ML VL ONE ×2 (10:20→11:01)
[2024-08-31] MEDS ORDERED: DexAMETHasone SOD PHOS 10MG/1ML VIAL INJ ONE (10:21)
[2024-08-31] MEDS ORDERED: LIDOCAINE HCL 100 MG/5ML (2%) SYRG INJ IV ONE (10:23)
[2024-08-31] MEDS ORDERED: PROPOFOL 10 MG/ML 20 ML IV ONE (10:23)
[2024-08-31] MEDS ORDERED: ROCURONIUM 10MG/ML 10ML VIAL IV ONE (10:24)
[2024-08-31] MEDS: LIDOCAINE W/ EPINEPHRINE 2% INJ 20ML VIAL ONE (10:25)
[2024-08-31] MEDS: ceFAZolin 2 GM/D5W100ml 100 ML IV ONE (10:45)
[2024-08-31] MEDS: BUPIVACAINE 0.25% INJ 50ML VIAL ONE (11:13)
[2024-08-31 11:28] VITALS: PULSE 83; RESP 19; O2SAT 99
[2024-08-31] MEDS ORDERED: fentaNYL CITRATE 100 MCG/2 ML VL IV PRN ×2 (11:45)
[2024-08-31] MEDS: ONDANSETRON HCL 4 MG/2 ML VIAL IV ONE (11:45)
[2024-08-31 13:00] VITALS: BP 121/71; PULSE 74; RESP 16; TEMP 98.3; O2SAT 98
--- NOTE | 2024-08-31 14:13 | DVHPN2 ---
Subjective Patient for lap latasha today Reviewed: Care Plan, H&P, Labs, Medications, Previous Orders, Radiology, Other (Consultation) Changes from previous H/P or p: No Changes Objective Vitals Vital Signs Date Time Temp Pulse Resp B/P (MAP) Pulse Ox O2 Delivery O2 Flow Rate FiO2 08/31/24 13:00 98.3 74 16 121/71 (88) 98 98.3 08/31/24 11:45 Room Air 0 100 Intake/Output Intake and Output 08/31/24 07:00 Intake Total 1940 ml Balance 1940 ml Intake Oral 940 ml IV Total 1000 ml # Voids 2 General Appearance: Alert, Oriented X3, Cooperative, No acute distress HEENT: Atraumatic Lungs: Clear to auscultation, Normal air movement Cardiovascular: Regular rate, Normal S1 Abdomen: Normal bowel sounds, Soft, Other (Right upper quadrant tenderness) Extremities: No edema Neuro: Normal speech, Cranial nerves 3-12 NL Psych/Mental Status: Mental status NL, Mood NL Medications Current Medications Medications Dose Ordered Sig/Severiano Route Start Time Stop Time Status Last Admin Dose Admin Ondansetron HCl 4 mg Q4HP PRN IV 08/29/24 13:00 Morphine Sulfate 1 mg Q4HPRN PRN IV 08/29/24 13:00 Nitroglycerin 0.4 mg Q5MINP PRN SL 08/29/24 13:00 Morphine Sulfate 2 mg Q30M PRN IV 08/29/24 13:00 Ibuprofen 600 mg Q6HP PRN PO 08/29/24 21:15 08/31/24 12:24 600 MG Potassium Chloride/Dextrose/ Sod Cl 1,000 ml @ 120 mls/hr Q8H20M IV 08/31/24 11:30 Fentanyl Citrate 25 mcg Q1HP PRN IV 08/31/24 11:45 08/31/24 11:46 UNV Laboratory Results Laboratory Tests 08/31/24 04:13 Chemistry Test 08/31/24 04:13 Albumin 4.2 g/dL (3.2-4.8) Calcium Level 9.5 mg/dL (8.7-10.4) Total Protein 6.6 g/dL (5.7-8.2) LFT Test 08/31/24 04:13 Alanine Aminotransferase (ALT) < 9 U/L (7-40) Alkaline Phosphatase 100 U/L (46-116) Aspartate Amino Transferase (AST) 10 U/L (13-40) L Total Bilirubin 1.0 mg/dL (0.2-1.0) Urinalysis Test 08/29/24 08:00 Urine Color Light-yellow (Yellow) Urine Clarity Clear (Clear) Urine pH 6.0 (5.0-9.0) Urine Specific [place] 1.026 (1.001-1.035) Urine Protein Negative (Negative) Urine Ketones Negative (Negative) Urine Blood Negative /uL (Negative) Urine Nitrite Negative (Negative) Urine Bilirubin Negative (Negative) Urine Urobilinogen 2 mg/dL (Negative) H Urine Leukocyte Esterase Negative /uL (Negative) Urine RBC 1 /hpf (0 - 4) Urine WBC 4 /hpf (0 - 5) Urine Squamous Epithelial Cells Few /hpf (<5) Urine Bacteria Few /hpf (None Seen) H Urine Glucose Normal mg/dL (Normal) Urine Test Negative (Negative) Labs and/or images reviewed: Labs reviewed by me, Image(s) reviewed by me Assessment/Plan Assessment/Plan Abdominal pain Acute cholecystitis Obesity Nonobstructing kidney stone For lap latasha today Trend H&H Advance diet as tolerated Pain management DVT prophylaxis on hold Plan discussed with: Other Date of Service: Aug 31, 2024 Billing Provider: JOSELITO PAPPAS MD Common Visit Codes: [id number] INP/OBS CARE(HIGH) JOSELITO PAPPAS MD Aug 31, 2024 14:13
--- NOTE | 2024-08-31 14:18 | DVHOP ---
DATE OF SURGERY: 08/31/2024 PREOPERATIVE DIAGNOSES: Cholelithiasis, cholecystitis. POSTOPERATIVE DIAGNOSES: Cholelithiasis, cholecystitis. SURGEON: Da Quijano MD VICE PRESIDENT OF HUMAN RESOURCES: Johan Deal. ANESTHESIA: General endotracheal. ANESTHESIOLOGIST: Dr. Jones. PROCEDURE: Laparoscopy, laparoscopic cholecystectomy. DESCRIPTION OF PROCEDURE: Under general endotracheal anesthesia, with the patient's skin prepped and draped, supraumbilical incision was made and Veress needle inserted by the hanging drop technique to establish pneumoperitoneum to 15 mmHg pressure by insufflation with carbon dioxide. With the abdomen fully distended, the needle was removed and replaced with a 5 mm trocar port through which a 0-degree viewing laparoscope was inserted and under direct vision, 5 and 10 mm ports inserted through the anterior axillary line on the right and the subxiphoid midline skin respectively. Instrumentation was introduced. Laparoscopy was performed, revealed no obvious unexpected pathology. The gallbladder was affected by acute and chronic cholecystitis and was visibly distended and filled with stones. The gallbladder was placed on tension. The cystic duct and cystic artery were identified, circumferentially dissected, skeletonized and traced into the hepaticocystic triangle so as to minimize the potential for inadvertent injury to the common bile duct. The cystic duct and cystic artery were then divided close to the gallbladder between metallic clips. The gallbladder was resected from its liver bed by electrocautery and traction and the fully mobilized gallbladder was removed from the peritoneal cavity through the subxiphoid 10 mm port site. Right upper quadrant was then irrigated, irrigant was aspirated. Hemostasis was meticulously inspected and found to be complete. At the termination of procedure, there was no bleeding from either the hepatic bed of the gallbladder or from the port sites. Instrumentation was withdrawn. Pneumoperitoneum was evacuated. Fascial defect closed using 0 Vicryl. Wounds approximated using Monocryl sutures, Dermabond glue and Steri-Strips. The patient remained stable throughout the procedure, left the operating room following an accurate needle and sponge count. Her mother was thoroughly informed at [phone]. Da Quijano MD PF TID: [id number] RECEIPT: [id number]
[2024-08-31] MEDS: D5W/SOD CHL 0.45%/KCL 20MEQ 1,000 ML IV SCH (16:07)
[2024-08-31 17:00] VITALS: BP 107/66; PULSE 76; RESP 16; TEMP 98.5; O2SAT 94
[2024-08-31 21:00] VITALS: BP 100/50; PULSE 62; RESP 18; TEMP 97.7; O2SAT 96
[2024-09-01 04:33] LABS: Basophils # (auto) 0 10 ^3/uL (0-0.2); Basophils % (auto) 0.1 % (0.0-2.0); Eosinophils # (auto) 0 10 ^3/uL (0-0.8); Hemoglobin 11.6 g/dL (12.2-16.2); Lymphocytes # (auto) 1.6 10 ^3/uL (0.4-5.4); Lymphocytes % (auto) 13.3 % (10.0-50.0); Mean Corpuscular Hemoglobin 30.6 pg (28.0-32.0); Mean Corpuscular Hgb Conc. 33.3 g/dL (32.0-36.0); Mean Corpuscular Volume 91.9 fL (80.0-100.0); Monocytes # (auto) 1.2 10 ^3/uL (0-1.3); Monocytes % (auto) 9.4 % (0.0-12.0); Neutrophils # (auto) 9.5 10 ^3/uL (1.6-8.6); Neutrophils % (auto) 77.2 % (37.0-80.0); Nucleated Red Blood Cells % 0.1 %; Platelet Count (auto) 300 10^3/uL (140-450); Red Blood Cells 3.81 10^6/uL (4.0-5.20); Red Cell Distribution Width 14.1 % (11.8-14.3); White Blood Cell 12.4 10^3/uL (4.4-10.8)
[2024-09-01 08:40] VITALS: BP 100/64; PULSE 57; RESP 16; TEMP 97.7; O2SAT 97
[2024-09-01 13:00] VITALS: BP 92/54; PULSE 66; RESP 17; TEMP 97.5; O2SAT 96
[2024-09-01] MEDS ORDERED: ACET-1079 PO (14:13)
[2024-09-01] MEDS ORDERED: HYDR-4902 PO (14:13)
--- NOTE | 2024-09-01 14:22 | DVHPN2 ---
Progress Note - Surgical Date Seen: Sep 01, 2024 Post op day Post op day: 1 Subjective Patient reports: No new complaints, Feels better Review of Systems: HEENT:Normal, CVS:Normal, RESPIRATORY:Normal, GI:Normal, :Normal, MSK:Normal, NEURO:Normal Objective Vital signs Vital Sign Date Time Temp Pulse Resp B/P (MAP) Pulse Ox O2 Delivery O2 Flow Rate FiO2 09/01/24 08:40 97.7 57 16 100/64 (76) 97 97.7 09/01/24 08:30 Room Air* 0 21 Total Intake and Output 08/31/24 08/31/24 09/01/24 15:00 23:00 07:00 Intake Total 100 ml 240 ml 300 ml Balance 100 ml 240 ml 300 ml Medications Current Medications Medications Dose Ordered Sig/Severiano Route Start Time Stop Time Status Last Admin Dose Admin Ondansetron HCl 4 mg Q4HP PRN IV 08/29/24 13:00 Morphine Sulfate 1 mg Q4HPRN PRN IV 08/29/24 13:00 Nitroglycerin 0.4 mg Q5MINP PRN SL 08/29/24 13:00 Morphine Sulfate 2 mg Q30M PRN IV 08/29/24 13:00 Ibuprofen 600 mg Q6HP PRN PO 08/29/24 21:15 08/31/24 19:58 600 MG Potassium Chloride/Dextrose/ Sod Cl 1,000 ml @ 120 mls/hr Q8H20M IV 08/31/24 11:30 09/01/24 07:14 120 MLS/HR Fentanyl Citrate 25 mcg Q1HP PRN IV 08/31/24 11:45 08/31/24 11:46 UNV Laboratory Laboratory Tests 09/01/24 03:23 08/31/24 04:13 Test 08/31/24 04:13 Range/Units Serum Glucose 93 74-106 mg/dL Examination: GENERAL:Normal, HEENT:Normal, NECK:Normal, LUNGS:Normal, CVS:Normal, ABDOMEN:Abnormal, MSK:Normal, SKIN:Normal, NEURO:Normal Problem List/Assessment/Plan Assessment and Plan abdomen oft, non distended, appropriately tender, tolerating diet, wounds clean dry and intact, ok to advance diet, ok to discharger per surgery point of view, follow up on clinic in 2 weeks after discharge My Orders My Orders Orders - ISA VALADEZ NP Procedure Category Date Status Time Regular Diet DIET 09/01/24 Verified Dinner Plan discussed with Plan discussed with: Patient, Other Visit Coding Surgery Date of Service if different f: Sep 01, 2024 Billing Provider: LEELA CARDONA MD Surgery Visit Codes: [id number] INP/OBS CARE(HIGH) ISA VALADEZ NP Sep 01, 2024 14:22
[2024-09-01 17:00] VITALS: BP 98/60; PULSE 61; RESP 17; TEMP 97.8; O2SAT 98
--- NOTE | 2024-09-01 19:15 | DVHDS2 ---
Discharge Summary Date of Admission Aug 29, 2024 at 12:57 Date of Discharge: Sep 01, 2024 Labs/Diagnostic Data: Laboratory Results Test 09/01/24 03:23 08/31/24 04:13 08/30/24 06:15 08/29/24 10:40 White Blood Count 12.4 10^3/uL (4.4-10.8) Red Blood Count 3.81 10^6/uL (4.0-5.20) Hemoglobin 11.6 g/dL (12.2-16.2) Hematocrit 35.0 % (36.0-46.0) Mean Corpuscular Volume 91.9 fL (80.0-100.0) Mean Corpuscular Hemoglobin 30.6 pg (28.0-32.0) Mean Corpuscular Hemoglobin Concent 33.3 g/dL (32.0-36.0) Red Cell Distribution Width 14.1 % (11.8-14.3) Platelet Count 300 10^3/uL (140-450) Mean Platelet Volume 8.5 fL (6.9-10.8) Neutrophils (%) (Auto) 77.2 % (37.0-80.0) Lymphocytes (%) (Auto) 13.3 % (10.0-50.0) Monocytes (%) (Auto) 9.4 % (0.0-12.0) Eosinophils (%) (Auto) 0.0 % (0.0-7.0) Basophils (%) (Auto) 0.1 % (0.0-2.0) Neutrophils # (Auto) 9.5 10 ^3/uL (1.6-8.6) Lymphocytes # (Auto) 1.6 10 ^3/uL (0.4-5.4) Monocytes # (Auto) 1.2 10 ^3/uL (0-1.3) Eosinophils # (Auto) 0 10 ^3/uL (0-0.8) Basophils # (Auto) 0 10 ^3/uL (0-0.2) Nucleated Red Blood Cells 0.1 % Total Bilirubin 0.7 mg/dL (0.2-1.0) Sodium Level 140 mmol/L (136-145) Potassium Level 4.0 mmol/L (3.5-5.1) Chloride Level 110 mmol/L (98-107) Carbon Dioxide Level 26 mmol/L (20-31) Anion Gap 4 (5-15) Blood Urea Nitrogen 8 mg/dL (9-23) Creatinine 0.76 mg/dL (0.550-1.02) Glomerular Filtration Rate Calc 109 mL/min (>90) BUN/Creatinine Ratio 10.5 (10.0-20.0) Serum Glucose 93 mg/dL (74-106) Calcium Level 9.5 mg/dL (8.7-10.4) Aspartate Amino Transferase (AST) 10 U/L (13-40) Alanine Aminotransferase (ALT) < 9 U/L (7-40) Alkaline Phosphatase 100 U/L (46-116) Total Protein 6.6 g/dL (5.7-8.2) Albumin 4.2 g/dL (3.2-4.8) Prothrombin Time 11.0 sec (9.3-11.8) Prothrombin Time INR 1.04 (0.9-1.15) Activated Partial Thromboplast Time 27.4 SEC (24.5-34.5) Direct Bilirubin 0.2 mg/dL (<0.3) Lipase 31 U/L (12-53) Test 08/29/24 08:00 Urine Color Light-yellow (Yellow) Urine Clarity Clear (Clear) Urine pH 6.0 (5.0-9.0) Urine Specific [place] 1.026 (1.001-1.035) Urine Protein Negative (Negative) Urine Ketones Negative (Negative) Urine Blood Negative /uL (Negative) Urine Nitrite Negative (Negative) Urine Bilirubin Negative (Negative) Urine Urobilinogen 2 mg/dL (Negative) Urine Leukocyte Esterase Negative /uL (Negative) Urine RBC 1 /hpf (0 - 4) Urine WBC 4 /hpf (0 - 5) Urine Squamous Epithelial Cells Few /hpf (<5) Urine Bacteria Few /hpf (None Seen) Urine Glucose Normal mg/dL (Normal) Urine Test Negative (Negative) Other Laboratory Tests 09/01/24 03:23 08/31/24 04:13 Brief Hx & Hospital Course: 28 F admitted for cholecystitis s/p lap latasha POD 1. no complaints, dc with pain meds and f/u with surgery Condition at Discharge: Good Final Diagnosis/Problems List s/p lap latasha Discharge Disposition: Home Discharge Instruct/Medications Diet: Regular Activity: No Restrictions, As Tolerated Follow Up/Referral: follow up with dr Quijano in 2 weeks 35 Discharge Statement: "Patient was advised to return to the ER or call 911 if any headaches, dizziness, shortness of breath, chest pain, abdominal pain, bleeding, fevers, or worsening of medical condition. Patient was counseled about treatment plan, medications, possible side effects, patientverbalized understanding. All questions were answered to the best of my ability. This discharge took greater then 30 minutes in planning, reviewing documentation, counseling the patient, and discussing with other team members." ASSESSMENT ASSESSMENT Assessment s/p lap latasha non obs kidney stone 0.5 Date of Service: Sep 01, 2024 Billing Provider: JOSELITO PAPAPS MD Common Visit Codes: [id number] DISCH DAY >30min JOSELITO PAPPAS MD Sep 01, 2024 19:15
[2024-09-01] MEDS ORDERED: TAMS-35 PO (19:16)
[2024-09-01 22:00] VITALS: BP 105/61; PULSE 77; RESP 16; TEMP 99; O2SAT 99
== END 2024-09-01 22:30 | disposition home or self-care (01) | DRG 263 ==
LOC: ER 08:04 → OVERFLOW 12:57 → CENTRAL 18:27
PROVIDERS: ADMIT Registered Nurse General Practice; ATTEND Internal Medicine
PROC: 0FT44ZZ Resection of Gallbladder, Percutaneous Endoscopic Approach (ICD-10-PCS; principal; 2024-08-31 10:33)
DX: K80.12 Calculus of gallbladder with acute and chronic cholecystitis without obstruction (principal); K76.0 Fatty (change of) liver, not elsewhere classified; E66.9 Obesity, unspecified; K21.9 Gastro-esophageal reflux disease without esophagitis; N20.0 Calculus of kidney; Z91.040 Latex allergy status; Z79.1 Long term (current) use of non-steroidal anti-inflammatories (NSAID); Z79.899 Other long term (current) drug therapy; Z68.32 Body mass index [BMI] 32.0-32.9, adult
CPT/HCPCS: 36415; 76705; 80048; 80053; 80076; 81001; 81025; 82247; 83690; 85025; 85610; 85730; 86850; 86900; 86901; 99291; G0378; J0330; J1100; J2250; J2405; J2704; J3490

== ENCOUNTER → 2025-09-02 | Outpatient (CLI) | payer MEDICAID ==
[~2025-09-02] MED LIST changes: +ACET-1079 PO; +HYDR-4902 PO; +PANT40TA2 PO; +TAMS-35 PO
[2025-09-02 11:51] LABS: Hematocrit 36.9 % (36.0-46.0); Hemoglobin 12.5 g/dL (12.2-16.2); Mean Corpuscular Hemoglobin 30.5 pg (28.0-32.0); Mean Corpuscular Volume 90.5 fL (80.0-100.0); Nucleated Red Blood Cells % 0.0 %
[2025-09-02 12:39] LABS: Iron 86 ug/dL (50-170)
[2025-09-02 12:42] LABS: Total Iron Binding Capacity 400 ug/dL (250-425)
[2025-09-02 12:43] LABS: Thyroid Stimulating Hormone 0.95 uIU/mL (0.55-4.78)
[2025-09-02 12:46] LABS: Ferritin 23.1 ng/mL (10-291)
[2025-09-02 12:47] LABS: Free T3 3.67 pg/mL (2.3-4.2)
[2025-09-02 12:48] LABS: Free T4 (Free Thyroxine) 0.78 ng/dL (0.89-1.76)
[2025-09-02 12:59] LABS: Alanine Aminotransferase 21 U/L (7-40); Albumin 4.1 g/dL (3.2-4.8); Alkaline Phosphatase 81 U/L (46-116); Anion Gap 11 (5-15); BUN/Creatinine Ratio 14.3 (10.0-20.0); Calcium 9.4 mg/dL (8.7-10.4); Carbon Dioxide 24 mmol/L (20-31); Chloride 105 mmol/L (98-107); Glucose 79 mg/dL (74-106); Potassium 4.1 mmol/L (3.5-5.1); Sodium 140 mmol/L (136-145); Total Protein 6.9 g/dL (5.7-8.2)
[2025-09-02 13:00] LABS: Bilirubin, Total 0.5 mg/dL (0.2-1.0)
[2025-09-02 13:03] LABS: Blood Urea Nitrogen 8 mg/dL (9-23)
[2025-09-02 17:20] LABS: RUBELLA Positive
[2025-09-04 05:09] LABS: Chlamydia Trachomatis, NAA Negative (Negative); Neisseria gonorrhoeae, NAA Negative (Negative)
== END | disposition home or self-care (01) ==
LOC: LAB 10:38
PROVIDERS: ATTEND Nurse Practitioner Women's Health
DX: Z34.82 Encounter for supervision of other normal pregnancy, second trimester (principal); Z3A.00 Weeks of gestation of pregnancy not specified
CPT/HCPCS: 36415; 80053; 82306; 82607; 82728; 82746; 83036; 83540; 83550; 84436; 84439; 84443; 84480; 84481; 84702; 85025; 86376; 86703; 86762; 86780; 86800; 86850; 86900; 86901; 87086; 87340; 87902